=== PATIENT | female | born 1990 | race Caucasian/White ===

== ENCOUNTER 2022-09-21 15:16 | Emergency (ER) | payer SELFPAY ==
[~2022-09-21] VITALS: Ht 154.9 cm; Wt 80.3 kg
[2022-09-21 15:27] VITALS: BP 129/91
--- NOTE | 2022-09-21 16:30 | NUR ---
32/F PRESENTS TO ED WITH WITH C/O BODY ACHES, CHILLS, HEADACHE CONGESTION AND COUGH. PATIENT REPORTS SYMPTOMS BEGAN 4 DAYS AGO, STATING SHE HAD TWO NEGATIVE AT HOME COVID TESTS. PATIENT DENIES CP, SOB, RECENT SICK CONTACTS.
[2022-09-21] MEDS ORDERED: IBUP-2213 PO (16:50)
[2022-09-21] MEDS ORDERED: PROM118S5 PO (16:50)
--- NOTE | 2022-09-21 17:10 | NUR ---
Patient discharged with v/s stable. Written and verbal after care instructions ABOUT COVID-19 given and explained. Patient alert, oriented and verbalized understanding of instructions. Ambulatory with steady gait. All questions addressed prior to discharge. ID band removed. Patient advised to follow up with PMD. Rx of IBUPROFEN AND PROMETHAZINE given. Patient educated on indication of medication including possible reaction and side effects. Opportunity to ask questions provided and answered.
== END 2022-09-21 17:10 | disposition home or self-care (01) ==
LOC: MED 15:16
DX: U07.1 COVID-19 (principal)
CPT/HCPCS: 99283